=== PATIENT | male | born 1970 | race Caucasian/White ===

== ENCOUNTER 2016-06-15 00:30 | Observation (INO) | payer OTHER ==
--- NOTE | ~2016-06-15 | EKG ---
PATIENT: JAYESH FLORES UNIT #: [id number] Ventricular Rate: 71 BPM Atrial Rate: 71 BPM P-R Interval: 152 ms QRS Duration: 88 ms Q-T Interval: 398 ms QTC Calculation(Bezet): 432 ms P Revere: 31 degrees Calculated R Revere: -22 degrees Calculated T Revere: 60 degrees Diagnosis Line: Normal sinus rhythm Diagnosis Line: Normal ECG Diagnosis Line: When compared with ECG of 16-MAR-2015 20:30, Diagnosis Line: No significant change was found Diagnosis Line: Confirmed by STEVE HARRIS MD ([id number]) on 06/16/2016 Diagnosis Line: 9:14:18 PM INTERPRETING MD: STEVEN LYNN
--- NOTE | ~2016-06-15 | TH ---
Unit #: [id number] #: [id number] Patient: JAYESH FLORES [id number] [address] [address] [id number] I MR#: [id number] NAME: JAYESH FLORES : 1970 SEX: M STUDY DATE/TIME: 06/15/2016 UNIT: [id number] ROOM: 547 STUDY DESCRIPTION: Imaging and EKG study Attending Physician: Vlad Monson M.D. CARDIOLOGY REPORT EXAM EKG as well as nuclear part of the test DESCRIPTION OF PROCEDURE AND FINDINGS Patient's baseline heart rate is 75 beats per minute, blood pressure 133/90. The patient received Lexiscan as per protocol. At peak infusion heart rate was 101 beats per minute, blood pressure 143/94. During Lexiscan infusion and recovery no further ST and T changes. Patient also had 11.64 mCi given at rest. Both sets of images were compared. Patient shows fairly uniform uptake of radiotracer. No defect was noted. Patient also has gated SPECT scan done which shows normal LV size and function. No wall motion abnormality detected. Ejection fraction is 67%. INTERPRETATION OF THE TEST 1. EKG part of the test negative for Lexiscan-induced ischemia. 2. Nuclear part of the test negative for myocardial ischemia. 3. Gated SPECT scan shows normal left ventricular size and function. Ejection fraction 67%. Dictated by... Christiano Rueda/oscar TD: 06/15/2016 17:47 JOB #: [id number] CARDIOLOGY REPORT Page 1 of 1 X Cayden Gimenez MD CARDIOLOGY REPORT
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
--- NOTE | ~2016-06-15 | DS ---
Unit #: [id number] #: [id number] Patient: JAYESH FLORES [id number] [address] [address] [id number] I MR#: [id number] NAME: JAYESH FLORES ROOM: 547 Age: 45 Sex: M Admission Date: 06/15/2016 : 1970 Discharge Date: 06/17/2016 Attending Physician: Vlad Monson M.D. DISCHARGE SUMMARY ADDENDUM CHANGES IN HOME MEDICATIONS 1. Entresto will be discontinued. Apparently, insurance would not approve it. 2. Add lisinopril 10 mg p.o. b.i.d. ADDITIONAL DISCHARGE DIAGNOSIS Nonischemic cardiomyopathy, left ventricular ejection fraction of 30% to 35%. Patient will need a LifeVest per Dr. Nicholson. Dictated by... Mónica Cartwright A.P.R.N. AM/ray TD: 06/17/2016 16:04 JOB #: [id number] DISCHARGE SUMMARY Page 1 of 1 X Mónica Cartwright APRN DISCHARGE SUMMARY
--- NOTE | ~2016-06-15 | CT57 ---
[facility] A Service of [facility] RADIOLOGY TEXT RESULTS PATIENT: JAYESH FLORES LOCATION: [place] [address] : [birth year] UNIT #: [id number] AGE: [address]: Vlad Monson MD SEX: M ORDER DR: [id number] [place] [address] [facility]. [place], [place] [address] [id number] I MR#: [id number] Acc #: [id number] NAME: JAYESH FLORES : 1970 SEX: M STUDY DATE/TIME: 06/17/2016 7:43 UNIT: [facility] ROOM: [facility] STUDY DESCRIPTION: CT Chest Wo Cont Attending Physician: Vlad Monson M.D. Ordering Physician: Nadeem Nicholson M.D. MEDICAL IMAGING REPORT This report is preliminary unless electronic signature is present EXAM CT scan of the chest without contrast INDICATION Chest pain, shortness of air and wheezing for [address] examination was performed with one or more of the following radiation dose reduction techniques: automatic exposure control, adjustment of mA and/or kV according to patient size, and iterative reconstruction. FINDINGS Axial 5 mm images were obtained through the chest without IV contrast. The lungs are clear except for minimal subsegmental atelectasis in the bases. The aorta is normal in size. There is no mediastinal or hilar adenopathy. Visualized portions of the upper abdomen show a small left renal cyst measuring 2.2 cm in diameter. There is also a right renal cyst measuring 2.0 cm in diameter. The airway is clear. IMPRESSION Minimal subsegmental atelectasis in the lung bases. Otherwise normal. Dictated by... Vincent Randolph M.D. THIS IS AN ELECTRONICALLY VERIFIED REPORT Vincent Randolph M.D. at 06/17/2016 12:29 PM BEN/rsoa TD: 06/17/2016 10:40 JOB #: [id number] [facility] A Service of [facility] RADIOLOGY TEXT RESULTS PATIENT: JAYESH FLORES LOCATION: [facility] 547-01 : [birth year] UNIT #: [id number] AGE: [address]: Vlad Monson MD SEX: M ORDER DR: MEDICAL IMAGING REPORT Page 1 of 1 COPY
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
[~2016-06-15 00:30] MED LIST: ADVAIR 100-501 EAC1 IH; ALBUTEROL 0.5ML INH; AMITRYPTYLINE PO; ASPIRINEC PO; ATENOLOL PO; ATENOLOL25 MG PO; BACTRIM DS TABL1 TA1 PO; CIPRO PO; DESYREL50 MG PO; FLEXERIL PO; FLOMAX0.4 MG PO; IBUPROFEN600 MG PO; KEFLEX PO; LISINOPRIL5 MG PO; LORTAB 5/500 TA1 TA1 PO; NAPROXEN PO; NEURONTIN PO; NITROGLYGERIN0.4 MG SL; NITROGYLCERIN SUBLINGUAL; TRAZODONE PO; UNK CHOLESTEROL MED; VICODIN 5/500 T1 TAB PO; VOLTAREN75 MG PO
[2016-06-15 06:11] LABS: BASOPHIL# 0.1 X10e3 (0-0.3); BASOPHIL% 0.7 % (0-2.5); EOSINOPHIL# 0.3 X10e3 (0-0.7); EOSINOPHIL% 4.3 % (0.0-7.0); HEMATOCRIT 39.9 % (38.0-50.0); HEMOGLOBIN 13.3 gm/dL (13.0-16.0); MEAN CELL VOLUME 94.3 FL (83-96); MEAN CORPUSCULAR HEMOGLOBIN 31.3 PG (28-34); MEAN CORPUSCULAR HGB CONC 33.2 g/dL (30-36); MEAN PLATELET VOLUME 8.2 FL (6.5-11.5); MONOCYTE# 0.8 X10e3 (0-1.0); MONOCYTE% 10.1 % (3.0-12.0); NEUTROPHIL# 4.8 X10e3 (1.5-7.1); NEUTROPHIL% 59.9 % (40-75); PLATELET COUNT 205 X10e3 (140-420); RED BLOOD COUNT 4.23 X10e (3.90-5.60); RED CELL DISTRIBUTION WIDTH 14.1 % (11.0-15.5); WHITE BLOOD COUNT 8.1 X10e3 (4.0-10.5)
[2016-06-15 06:16] LABS: DIFF IND NO
[2016-06-15 06:45] LABS: PROTHROMBIN TIME (PATIENT) 10.1 SECONDS (9.6-11.5)
[2016-06-15 07:19] LABS: BUN/CREATININE RATIO 16.25; CALCIUM SERUM 8.9 mg/dL (8.4-10.2); CREATININE SERUM 0.8 mg/dL (0.6-1.4); GLOM FILT RATE Estimated 107.9 mL/min (>60); MAGNESIUM 2.1 mg/dL (1.6-3.0); POTASSIUM 3.8 mmol/L (3.5-5.1)
[2016-06-15] MEDS ORDERED: TOPAMAX PO (10:57)
[2016-06-15] MEDS ORDERED: TALWIN NX50 MG TAB PO (10:58)
[2016-06-17] MEDS ORDERED: ASPIRIN81 MG PO (12:39)
[2016-06-17] MEDS ORDERED: ENTRESTO 24 MG1 EACH PO (12:40)
[2016-06-17] MEDS ORDERED: ACETAMINOPHEN PO ×2 (12:41→12:43)
[2016-06-17] MEDS ORDERED: LOPRESSOR PO (12:41)
[2016-06-17] MEDS ORDERED: LIPITOR20 MG PO (12:42)
[2016-06-17] MEDS ORDERED: PRINIVIL10 MG PO (16:56)
== END 2016-06-17 17:40 | disposition home or self-care (01) ==
LOC: C5B 00:30
PROVIDERS: Internal Medicine Cardiovascular Disease
DX: R07.89 Other chest pain (principal); I11.0 Hypertensive heart disease with heart failure; I50.21 Acute systolic (congestive) heart failure; I42.8 Other cardiomyopathies; I51.7 Cardiomegaly; J98.11 Atelectasis; E78.5 Hyperlipidemia, unspecified; G89.4 Chronic pain syndrome; F17.210 Nicotine dependence, cigarettes, uncomplicated; Z79.899 Other long term (current) drug therapy; Z87.820 Personal history of traumatic brain injury; Z82.49 Family history of ischemic heart disease and other diseases of the circulatory system; Z88.5 Allergy status to narcotic agent
CPT/HCPCS: 71250; 78452; 80048; 80061; 83735; 84443; 84484; 85025; 85610; 93005; 93017; 93306; 94640; 94760; 96374; A9500; G0378; J2270; J2785

== ENCOUNTER 2016-08-25 21:59 | Emergency (ER) | payer OTHER ==
--- NOTE | ~2016-08-25 | CR72 ---
[facility] A Service of [facility] RADIOLOGY TEXT RESULTS PATIENT: JAYESH FLORES LOCATION: [facility] : [birth year] UNIT #: [id number] AGE: [address]: Maren Shaikh MD SEX: M ORDER DR: [id number] [facility] [address] [facility]. [place], [place] [address] [id number] MR#: [id number] #: [id number] NAME: JAYESH FLORES : 1970 SEX: M STUDY DATE/TIME: 08/25/2016 22:36 UNIT: [facility] ROOM: STUDY DESCRIPTION: CR Chest Single View Portable Attending Physician: Maren Shaikh M.D. Ordering Physician: Maren Shaikh M.D. Primary Care Physician: No Primary Care Physician MEDICAL IMAGING REPORT This report is preliminary unless electronic signature is present EXAM Single view chest x-ray: 08/25/2016 HISTORY A 46-year-old male in the ED complaining of chest pain radiating into the left arm and shortness of air. Symptoms began earlier today. TECHNIQUE AP portable chest x-ray. FINDINGS No active disease in the chest. The lungs are expanded and clear. No visible pulmonary filtrate or pleural effusion. Heart size and pulmonary vascularity are normal. Multiple old healed left posterior rib fractures. No change since 03/16/2015. IMPRESSION 1. No active disease. 2. Multiple old healed left posterior rib fractures. 3. No change since 03/16/2015. Dictated by... New Kerr M.D. THIS IS AN ELECTRONICALLY VERIFIED REPORT New Kerr M.D. at 08/26/2016 6:05 AM KACEY/gabrielle TD: 08/25/2016 23:42 JOB #: [id number] MEDICAL IMAGING REPORT [facility] A Service of [facility] RADIOLOGY TEXT RESULTS PATIENT: JAYESH FLORES LOCATION: [facility] : [birth year] UNIT #: [id number] AGE: [address]: Maren Shaikh MD SEX: M ORDER DR: Page 1 of 1 COPY
--- NOTE | ~2016-08-25 | EKG ---
PATIENT: JAYESH FLORES UNIT #: [id number] Ventricular Rate: 80 BPM Atrial Rate: 80 BPM P-R Interval: 184 ms QRS Duration: 98 ms Q-T Interval: 402 ms QTC Calculation(Bezet): 463 ms P Derry: 60 degrees Calculated R Derry: -18 degrees Calculated T Derry: 69 degrees Diagnosis Line: Normal sinus rhythm Diagnosis Line: Possible Left atrial enlargement Diagnosis Line: Incomplete right bundle branch block Diagnosis Line: Cannot rule out Septal infarct , age undetermined Diagnosis Line: Abnormal ECG Diagnosis Line: When compared with ECG of 15-JUN-2016 07:57, Diagnosis Line: Incomplete right bundle branch block is now Diagnosis Line: Present Diagnosis Line: Septal infarct is now Present Diagnosis Line: Confirmed by KI BERNABE MD ([id number]) on 08/26/2016 Diagnosis Line: 6:44:13 PM INTERPRETING MD: SRINIVASA LYNN
[~2016-08-25 21:59] MED LIST changes: +ACETAMINOPHEN PO; +ASPIRIN81 MG PO; +ENTRESTO 24 MG1 EACH PO; +LIPITOR20 MG PO; +LOPRESSOR PO; +PRINIVIL10 MG PO; +TALWIN NX50 MG TAB PO; +TOPAMAX PO
[2016-08-25] MEDS ORDERED: FLEXERIL10 MG PO (22:13)
[2016-08-25] MEDS ORDERED: NITROGLYCERIN0.4 MG SL (22:13)
[2016-08-25] MEDS ORDERED: LISINOPRIL10 MG PO (22:13)
[2016-08-25] MEDS ORDERED: RANEXA500 MG PO (22:13)
[2016-08-25] MEDS ORDERED: ALBUTEROL MININEB NEB (22:14)
[2016-08-25] MEDS ORDERED: ALBUTEROL17 GM (22:14)
[2016-08-25 22:27] LABS: URINE SOURCE CLEAN CATCH
[2016-08-25 22:31] LABS: URINE APPEARANCE CLEAR; URINE BILIRUBIN NEG (NEG); URINE BLOOD NEG (NEG); URINE COLOR YELLOW; URINE GLUCOSE NEG (NEG); URINE KETONE NEG (NEG); URINE LEUKOCYTE ESTERASE NEG (NEG); URINE NITRATE NEG (NEG); URINE PH 6.5 (5-8); URINE PROTEIN NEG (NEG); URINE SPECIFIC GRAVITY 1.005 (1.003-1.035); URINE UROBILINOGEN 0.2 MG/DL (NEG)
[2016-08-25 22:33] LABS: POC - CKMB 1.2 ng/mL (0.0-7.9); POC - TROPONIN <0.05 ng/mL (<=0.05)
[2016-08-25 22:35] LABS: CULTURE INDICATED? NO
[2016-08-25 22:41] LABS: AMPHETAMINE NEG (NEG); BARBITURATES NEG (NEG); BENZODIAZEPINES NEG (NEG); COCAINE NEG (NEG); MARIJUANA NEG (NEG); OPIATES POS (NEG); TRICYCLIC ANTIDEPRESSANTS POS (NEG); U METHADONE NEG (NEG)
[2016-08-25 22:43] LABS: BASOPHIL# 0.1 X10e3 (0-0.3); BASOPHIL% 0.8 % (0-2.5); EOSINOPHIL# 0.3 X10e3 (0-0.7); EOSINOPHIL% 3.7 % (0.0-7.0); HEMATOCRIT 36.1 % (38.0-50.0); HEMOGLOBIN 12.1 gm/dL (13.0-16.0); LYMPHOCYTE# 2.6 X10e3 (1.0-3.5); LYMPHOCYTE% 34.9 % (17.0-45.0); MEAN CELL VOLUME 93.6 FL (83-96); MEAN CORPUSCULAR HEMOGLOBIN 31.4 PG (28-34); MEAN CORPUSCULAR HGB CONC 33.5 g/dL (30-36); MEAN PLATELET VOLUME 8.4 FL (6.5-11.5); MONOCYTE# 0.6 X10e3 (0-1.0); MONOCYTE% 8.6 % (3.0-12.0); NEUTROPHIL# 3.9 X10e3 (1.5-7.1); PLATELET COUNT 218 X10e3 (140-420); RED BLOOD COUNT 3.86 X10e (3.90-5.60); RED CELL DISTRIBUTION WIDTH 14.2 % (11.0-15.5); WHITE BLOOD COUNT 7.5 X10e3 (4.0-10.5)
[2016-08-25 22:46] LABS: DIFF IND NO
[2016-08-25 22:59] LABS: PARTIAL THROMBOPLASTIN TIME 21.2 SECONDS (23.5-31.3)
[2016-08-25 23:02] LABS: ALBUMIN SERUM 4.1 g/dL (3.5-5.0); ALKALINE PHOSPHATASE 68 U/L (32-92); ALT (SGPT) 18 U/L (10-40); AST (SGOT) 17 U/L (10-42); BILIRUBIN,TOTAL 0.6 mg/dL (0.2-2.0); BLOOD UREA NITROGEN 8 mg/dL (9-23); BUN/CREATININE RATIO 8.88; CALCIUM SERUM 8.2 mg/dL (8.4-10.2); CARBON DIOXIDE 19 mmol/L (22-31); CHLORIDE 113 mmol/L (100-111); CREATININE SERUM 0.9 mg/dL (0.6-1.4); GLOM FILT RATE Estimated 102.1 mL/min (>60); GLUCOSE FASTING 108 mg/dL (70-110); LIPASE 31 U/L (22-51); POTASSIUM 3.2 mmol/L (3.5-5.1); PROTEIN TOTAL SERUM 6.9 g/dL (6.0-8.3); SODIUM 139 mmol/L (135-145)
[2016-08-25 23:03] LABS: BILIRUBIN, DIRECT <0.1 mg/dL (0.0-0.2); BILIRUBIN,INDIRECT 0.5 mg/dL (0.0-0.9)
[2016-08-25 23:04] LABS: ALCOHOL BLOOD 180 mg/dL (0)
[2016-08-26 00:14] LABS: POC - CKMB <1.0 ng/mL (0.0-7.9); POC - TROPONIN <0.05 ng/mL (<=0.05)
== END 2016-08-26 00:45 | disposition home or self-care (01) ==
LOC: CED 21:59
PROVIDERS: Emergency Medicine
DX: R07.89 Other chest pain (principal); E78.5 Hyperlipidemia, unspecified; J44.9 Chronic obstructive pulmonary disease, unspecified; I11.0 Hypertensive heart disease with heart failure; I50.9 Heart failure, unspecified; F10.129 Alcohol abuse with intoxication, unspecified; F17.210 Nicotine dependence, cigarettes, uncomplicated; Z88.5 Allergy status to narcotic agent; Z79.82 Long term (current) use of aspirin; Z79.899 Other long term (current) drug therapy
CPT/HCPCS: 36415; 71010; 80048; 80076; 80307; 81003; 82553; 83690; 83880; 84484; 85025; 85610; 85730; 93005; 96374; 99284; G0480; J1885